=== PATIENT | female | born 1945 | race African-American/Black ===

== ENCOUNTER 2017-12-24 19:44 | Emergency (ER) | payer OTHER ==
[2017-12-24 20:45] LABS: Absolute Lymphocytes (CBC) 1.5 K/uL (0.7-4.9); Absolute Monocytes 0.7 K/uL (0.1-1.3); Basophils % 0.6 % (0-1.3); Eosinophils % 2.2 % (0-4.4); Hematocrit 34.3 % (36.0-45.0); Lymphocytes % 28.3 % (15.3-44.8); MCH 27.3 pg (27.0-35.0); MCV 80.6 fL (80-100); MPV 9.1 fL (7.6-11.3); Monocytes % 13.4 % (3.3-12.3); RBC Red Blood Cell Count 4.25 M/uL (3.86-4.86)
[2017-12-24 21:02] LABS: Potassium 3.2 mmol/L (3.5-5.1); Troponin (Emerg Dept Use Only) 0.02 ng/mL (0.0-0.045)
[2017-12-24 21:21] LABS: Urine Amorphous Sediment TRACE /HPF (NONE SEEN); Urine Bacteria 20-50 /HPF (<20); Urine Culture Reflex Order REFLEXED; Urine RBC <5 /HPF (NONE SEEN)
[2017-12-24 21:23] LABS: Urine Blood NEGATIVE (NEG); Urine Glucose NEGATIVE (NEG); Urine Protein NEGATIVE (NEG); Urine pH 5.5 (5.0-7.0)
--- NOTE | 2017-12-24 21:26 | RAD REPORT ---
EXAM DESCRIPTION: RAD - Chest Single View - 12/24/2017 8:54 pm CLINICAL HISTORY: Syncope, shortness of breath COMPARISON: December 2010 TECHNIQUE: AP portable chest image was obtained 9 hours . FINDINGS: Low lung volumes noted. No peripheral mass or consolidation. No significant failure or vol ume overload. Heart size is magnified by portable technique, shallow inspiration and large body habit us. Vasculature within normal limits for exam limitations. No measurable pleural effusion and no pneu mothorax. No acute bony abnormality seen. No acute aortic findings suspected. IMPRESSION: Shallow inspiration exam without acute cardiopulmonary finding. No significant change from comparison.
--- NOTE | 2017-12-24 22:30 | EDPHYS ---
Physician Documentation [facility] Name: Amber Olsen Age: 72 yrs Sex: Female : 1945 Arrival Date: 12/24/2017 Time: 19:50 Bed 26 Private MD: ED Physician Jason Trujillo HPI: 12/24 20:25 This 72 yrs old Black Female presents to ER via EMS with complaints of Dizziness - rn Lightheadedness. 20:25 The patient presents with dizziness, feeling faint, generalized weakness, rn lightheadedness. Onset: The symptoms/episode began/occurred just prior to arrival. Modifying factors: The symptoms are alleviated by lying down, the symptoms are aggravated by standing up, changing position. Severity of symptoms: At their worst the symptoms were moderate in the emergency department the symptoms have improved. The patient has experienced similar episodes in the past. Reports lightheaded and dizzy when trying to get up out of recliner, no syncope, reports not much water intake for the day, did not have headache/chest pain/sob/abd pain. NO recent vomiting/diarrhea. Given fluids by EMS and drank some water at home, feels better. Denies pain. . Historical: - Allergies: 20:04 No Known Allergies; kr2 - Home Meds: 20:04 pravastatin 40 mg oral tab 1 tab once daily for Hyperlipidemia [Active]; omeprazole 40 kr2 mg Oral cpDR 1 cap once daily [Active]; paroxetine HCl 10 mg oral tab 1 tab once daily for Anxiety with Depression [Active]; amlodipine 5 mg tab 1 tab once daily [Active]; tramadol 50 mg Oral tab 1 tab every 4-6 hours for Pain [Active]; losartan-hydrochlorothiazide 100-25 mg oral tab 1 tab once daily [Active]; clonidine HCl 0.1 mg Oral tab 1 tab as needed for systolic bp over 160 [Active]; - PMHx: 20:04 Hypertension; Hyperlipidemia; Depression; kr2 - PSHx: 20:04 Hysterectomy; Appendectomy; kr2 - Immunization history:: Adult Immunizations unknown. - Social history:: Smoking status: Patient/guardian denies using tobacco. - Ebola Screening: : No symptoms or risks identified at this time. - Family history:: not pertinent. - Hospitalizations: : No recent hospitalization is reported. ROS: 20:25 Constitutional: Negative for fever, chills, and weight loss, Eyes: Negative for injury, rn pain, redness, and discharge, Neck: Negative for injury, pain, and swelling, Cardiovascular: Negative for chest pain, palpitations, and edema, Respiratory: Negative for shortness of breath, cough, wheezing, and pleuritic chest pain, Abdomen/GI: Negative for abdominal pain, vomiting, diarrhea, and constipation, MS/Extremity: Negative for injury and deformity, Skin: Negative for injury, rash, and discoloration, Neuro: Negative for headache, numbness, tingling, and seizure. Exam: 20:25 Constitutional: This is a well developed, well nourished patient who is awake, alert, rn and in no acute distress. Head/Face: Normocephalic, atraumatic. Eyes: Pupils equal round and reactive to light, extra-ocular motions intact. Lids and lashes normal. Conjunctiva and sclera are non-icteric and not injected. Cornea within normal limits. Periorbital areas with no swelling, redness, or edema. ENT: dry MM Cardiovascular: Regular rate and rhythm with a normal S1 and S2. No gallops, murmurs, or rubs. Normal PMI, no JVD. No pulse deficits. Respiratory: mild tachypnea, clear bilateral breath sounds, speaking full sentences, no labored breathing Abdomen/GI: soft, non-tender Skin: Warm, dry, no evidence of cellulitis. MS/ Extremity: Pulses equal, no cyanosis. Neurovascular intact. Full, normal range of motion. Equal circumference. Neuro: Awake and alert, GCS 15, oriented to person, place, time, and situation. Cranial nerves II-XII grossly intact. Motor strength 5/5 in all extremities. Sensory grossly intact. Cerebellar exam normal. Vital Signs: 19:58 BP 124 / 44; Pulse 75; Resp 23; Temp 99.1; Pulse Ox 99% on R/A; Weight 81.65 kg; Height kr2 5 ft. 3 in. (160.02 cm); Pain 0/10; 21:00 BP 136 / 71; Pulse 72; Resp 19; Pulse Ox 99% on R/A; kr2 22:27 BP 110 / 52; Pulse 69; Resp 17; Temp 98.8; Pulse Ox 99% on R/A; kr2 19:58 Body Mass Index 31.89 (81.65 kg, 160.02 cm) kr2 MDM: 20:04 Patient medically screened. rn 22:29 Differential diagnosis: generalized weakness, hypovolemia, idiopathic dizziness, rn near-syncope. Data reviewed: vital signs, nurses notes, lab test result(s), EKG, radiologic studies, plain films, and as a result, I will discharge patient. Counseling: I had a detailed discussion with the patient and/or guardian regarding: the historical points, exam findings, and any diagnostic results supporting the discharge/admit diagnosis, lab results, radiology results, the need for outpatient follow up, to return to the emergency department if symptoms worsen or persist or if there are any questions or concerns that arise at home. Response to treatment: the patient's symptoms have markedly improved after treatment, the patient's condition has returned to base line, the patient is now symptom free, patient is well hydrated. and as a result, I will discharge patient. Special discussion: I discussed with the patient/guardian in detail that at this point there is no indication for admission to the hospital. It is understood, however, that if the symptoms persist or worsen the patient needs to return immediately for re-evaluation. 12/24 20:11 Order name: Flu; Complete Time: 21: 12/24 20:11 Order name: Urine Microscopic Only; Complete Time: : 12/24 20:11 Order name: Troponin (emerg Dept Use Only); Complete Time: 21: rn 12/24 20:11 Order name: CBC with Diff; Complete Time: 21: 12/24 20:11 Order name: Basic Metabolic Panel; Complete Time: : 12/24 20:51 Order name: Urine Dipstick--Ancillary (enter results); Complete Time: 21:28 mw2 12/24 20:11 Order name: IV Start; Complete Time: 20:12 rn 12/24 20:11 Order name: XRAY Chest (1 view); Complete Time: 21: rn 12/24 20:11 Order name: Urine Dipstick-Ancillary (obtain specimen); Complete Time: 21:03 rn 12/24 20:11 Order name: EKG; Complete Time: 20:12 rn 12/24 20:11 Order name: EKG - Nurse/Tech; Complete Time: 20:36 rn 12/24 21:22 Order name: Urine Culture EDMS Administered Medications: 20:12 Drug: NS 0.9% 500 ml Route: IV; Rate: bolus; Site: right antecubital; kr2 20:39 Follow up: Response: No adverse reaction; Marked relief of symptoms; IV Status: kr2 Completed infusion 22:35 Drug: Potassium Chloride 40 mEq Route: PO; kr2 22:35 Follow up: Response: Medication administered at discharge. kr2 Disposition: 12/24/17 22:29 Discharged to Home. Impression: Dizziness and giddiness, Dehydration, Hypokalemia. - Condition is Stable. - Discharge Instructions: Dehydration, Adult, Dizziness, Near-Syncope. - Medication Reconciliation Form, Thank You Letter, Antibiotic Education, Prescription Opioid Use form. - Follow up: Private Physician; When: As needed; Reason: Recheck today's complaints, Re-evaluation by your physician. - Problem is new. - Symptoms have improved. Signatures: Dispatcher [employer] EDMS Jason Trujillo MD MD rn Reaves, Karey, RN RN kr2 Corrections: (The following items were deleted from the chart) 22:55 22:29 12/24/2017 22:29 Discharged to Home. Impression: Dizziness and giddiness; kr2 Dehydration; Hypokalemia. Condition is Stable. Forms are Medication Reconciliation Form, Thank You Letter, Antibiotic Education, Prescription Opioid Use. Follow up: Private Physician; When: As needed; Reason: Recheck today's complaints, Re-evaluation by your physician. Problem is new. Symptoms have improved. rn
--- NOTE | 2017-12-24 22:30 | ER ---
Nurse's Notes [facility] Name: Amber Olsen Age: 72 yrs Sex: Female : 1945 Arrival Date: 12/24/2017 Time: 19:50 Bed 26 Private MD: Diagnosis: Dizziness and giddiness;Dehydration;Hypokalemia Presentation: 12/24 19:50 Presenting complaint: EMS states: patient called complaining of feeling dizzy and kr2 faint. Upon arrival she was diaphoretic, blood glucose was 136. She had several bottom teeth removed 2 weeks ago and had some difficulty eating and drinking. She was given 250mL of saline IV. Transition of care: patient was not received from another setting of care. Onset of symptoms was December 24, 2017 at 19:15. Risk Assessment: Do you want to hurt yourself or someone else? Patient reports no desire to harm self or others. Initial Sepsis Screen: Does the patient meet any 2 criteria? RR > 20 per min. Does the patient have a suspected source of infection? Yes: Other: teeth extracted 2 weeks ago. Care prior to arrival: Medication(s) given: Normal saline infusion, 250mL IV initiated. 18 GA, in the right antecubital area, Glucose check: 136. 19:50 Method Of Arrival: EMS kr2 19:50 Acuity: TERESA 3 kr2 Triage Assessment: 20:05 General: Appears in no apparent distress. comfortable, well groomed, well developed, kr2 Behavior is calm, cooperative, appropriate for age. Pain: Denies pain. EENT: Oral mucosa is moist. recent teeth extraction to right lower side. Neuro: Level of Consciousness is awake, alert, obeys commands, Oriented to person, place, time, situation. Cardiovascular: Reports fatigue, she was dizzy and light headed earlier but now is just tired Patient's skin is warm and dry. Rhythm is regular. Respiratory: Airway is patent Respiratory effort is even, unlabored, Respiratory pattern is regular, symmetrical. GI: Abdomen is flat, non-distended, Reports nausea, vomiting. : Denies burning with urination. Derm: Skin is intact, with poor turgor Skin is pink, warm \T\ dry. Musculoskeletal: Circulation, motion, and sensation intact. Historical: - Allergies: 20:04 No Known Allergies; kr2 - Home Meds: 20:04 pravastatin 40 mg oral tab 1 tab once daily for Hyperlipidemia [Active]; omeprazole 40 kr2 mg Oral cpDR 1 cap once daily [Active]; paroxetine HCl 10 mg oral tab 1 tab once daily for Anxiety with Depression [Active]; amlodipine 5 mg tab 1 tab once daily [Active]; tramadol 50 mg Oral tab 1 tab every 4-6 hours for Pain [Active]; losartan-hydrochlorothiazide 100-25 mg oral tab 1 tab once daily [Active]; clonidine HCl 0.1 mg Oral tab 1 tab as needed for systolic bp over 160 [Active]; - PMHx: 20:04 Hypertension; Hyperlipidemia; Depression; kr2 - PSHx: 20:04 Hysterectomy; Appendectomy; kr2 - Immunization history:: Adult Immunizations unknown. - Social history:: Smoking status: Patient/guardian denies using tobacco. - Ebola Screening: : No symptoms or risks identified at this time. - Family history:: not pertinent. - Hospitalizations: : No recent hospitalization is reported. Screenin:05 Abuse screen: Denies threats or abuse. Denies injuries from another. Nutritional kr2 screening: No deficits noted. Tuberculosis screening: No symptoms or risk factors identified. Fall Risk Gait- Weak (10 pts.). Assessment: 20:13 Reassessment: See triage assessment. kr2 21:00 Reassessment: Patient appears in no apparent distress at this time. Patient and/or kr2 family updated on plan of care and expected duration. Pain level reassessed. Patient is alert, oriented x 3, equal unlabored respirations, skin warm/dry/pink. Patient denies pain at this time. Patient states feeling better. 22:29 Reassessment: Patient appears in no apparent distress at this time. Patient and/or kr2 family updated on plan of care and expected duration. Pain level reassessed. Patient is alert, oriented x 3, equal unlabored respirations, skin warm/dry/pink. Patient denies pain at this time. Patient states feeling better. Vital Signs: 19:58 BP 124 / 44; Pulse 75; Resp 23; Temp 99.1; Pulse Ox 99% on R/A; Weight 81.65 kg; Height kr2 5 ft. 3 in. (160.02 cm); Pain 0/10; 21:00 BP 136 / 71; Pulse 72; Resp 19; Pulse Ox 99% on R/A; kr2 22:27 BP 110 / 52; Pulse 69; Resp 17; Temp 98.8; Pulse Ox 99% on R/A; kr2 19:58 Body Mass Index 31.89 (81.65 kg, 160.02 cm) kr2 ED Course: 19:50 Patient arrived in ED. kr2 19:50 Patient has correct armband on for positive identification. Bed in low position. Call kr2 light in reach. Side rails up X2. compliance monitor on. Pulse ox on. NIBP on. Door closed. Verbal reassurance given. Head of bed elevated. 19:55 Triage completed. kr2 19:58 Mechelle Raphael, RN is Primary Nurse. kr2 20:00 Mechelle Raphael, RN is Primary Nurse. kr2 20:00 Maintain EMS IV. Dressing intact. Good blood return noted. Site clean \T\ dry. Gauge \T\ kr 2 site: 18g RAC. 20:04 Jason Trujillo MD is Attending Physician. rn 20:08 Arm band placed on. kr2 20:20 Initial lab(s) drawn, by me, sent to lab. EKG done, by ED staff, reviewed by Jason Trujillo MD. 20:36 Basic Metabolic Panel Sent. jp3 20:36 CBC with Diff Sent. jp3 20:36 Troponin (emerg Dept Use Only) Sent. jp3 20:36 Flu Sent. jp3 20:38 Mechelle Raphael, SIOBHAN is Primary Nurse. kr2 20:52 X-ray completed. Portable x-ray completed in exam room. Patient tolerated procedure sg4 well. 20:55 XRAY Chest (1 view) In Process Unspecified. EDMS 21:03 Urine Microscopic Only Sent. kr2 22:54 No provider procedures requiring assistance completed. IV discontinued, intact, kr2 bleeding controlled, No redness/swelling at site. Pressure dressing applied. Administered Medications: 20:12 Drug: NS 0.9% 500 ml Route: IV; Rate: bolus; Site: right antecubital; kr2 20:39 Follow up: Response: No adverse reaction; Marked relief of symptoms; IV Status: kr2 Completed infusion 22:35 Drug: Potassium Chloride 40 mEq Route: PO; kr2 22:35 Follow up: Response: Medication administered at discharge. kr2 Outcome: 22:29 Discharge ordered by . rn 22:55 Discharged to home via wheelchair, with family. kr2 22:55 Condition: improved 22:55 Discharge instructions given to patient, Instructed on discharge instructions, follow up and referral plans. Demonstrated understanding of instructions, follow-up care. 22:55 Patient left the ED. kr2 Signatures: Dispatcher [employer] EDMS Jason Trujillo MD MD rn Reaves, Karey, RN RN kr2 Herber Patino jp3 Svetlana Madrid 4 Corrections: (The following items were deleted from the chart) 23:00 22:27 BP 110 / 52; Pulse 69bpm; Resp 17bpm; Pulse Ox 99% RA; kr2 kr2 23:01 19:50 Door closed. Warm blanket given. Head of bed elevated. kr2 kr2
[2017-12-24] MEDS ORDERED: POTASSIUM CL SA 10 MEQ TAB PO ONE (22:39)
[2017-12-24 23:00] VITALS: TEMP 99.1; O2SAT 99
[2017-12-24 23:02] VITALS: BP 110/52
--- NOTE | 2017-12-25 09:03 | EKG ---
Test Date: 2017-12-24 Test Time: 20:28:07 Pressroom Supervisor: SOPHIE MEASUREMENT RESULTS: Intervals: Rate: 72 IA: 170 QRSD: 96 QT: 402 QTc: 440 [place]: P: 8 IA: 170 QRS: 80 T: -22 INTERPRETIVE STATEMENTS: Normal sinus rhythm Nonspecific T wave abnormality Abnormal ECG Compared to ECG 12/28/2010 08:58:34 T-wave abnormality now present Left ventricular hypertrophy no longer present Electronically Signed On 12-25-17 09:02:42 CDT by Carl Robles
== END 2017-12-24 22:55 | disposition home or self-care (01) ==
LOC: ER 19:44
DX: E86.0 Dehydration (principal); E87.6 Hypokalemia; E78.5 Hyperlipidemia, unspecified; I10 Essential (primary) hypertension; F34.1 Dysthymic disorder
CPT/HCPCS: 36415; 71045; 80048; 81003; 81015; 84484; 85025; 87086; 87088; 87804; 93005; 99284

== ENCOUNTER 2023-11-15 14:52 | Emergency (ER) | payer OTHER ==
[2023-11-15 16:19] LABS: Specific Gravity > 1.030 (1.005-1.030); Urine Bacteria <20 /HPF (<20); Urine Bilirubin NEGATIVE (Negative); Urine Blood Negative (Negative); Urine Clarity Extremely Turbid (Clear); Urine Color Yellow (Yellow); Urine Crystals Unidentified Few /HPF (None Seen); Urine Culture Reflex Order NOT NEEDED; Urine Glucose NEGATIVE (Negative); Urine Ketones TRACE (Negative); Urine Microscopic Reflex YN ORDER UMIC; Urine Mucus 2+ /HPF (None Seen); Urine Nitrite NEGATIVE (Negative); Urine Protein 1+ (Negative); Urine Urobilinogen 1+ (Normal); Urine Yeast (Budding) Trace /HPF (None Seen); Urine pH 5.5 (5.0-7.0)
--- NOTE | 2023-11-15 16:33 | RAD REPORT ---
EXAM DESCRIPTION: RAD - Lumbar Spine 3 Views - 11/15/2023 3:45 pm CLINICAL HISTORY: Back pain FINDINGS: No fracture or dislocation is seen. Mild spondylosis involves the lumbar spine The bones are osteoporotic
--- NOTE | 2023-11-15 16:39 | EDPHYS ---
Physician Documentation [facility] Name: Amber Olsen Age: 77 yrs Sex: Female : 1945 Arrival Date: 11/15/2023 Time: 14:52 Bed IW1 Private MD: ED Physician Kayden Owens HPI: 11/14 15:26 This 77 yrs old Black Female presents to ER via Ambulatory with complaints of Flank kb Pain. 15:26 Pt is a 77 year old female who presents for low back pain that starts in center of back kb and radiates to each side, worse on the left. States the pain started about a month ago. Denies injury, fall, trauma. States pain is worse at night and with standing if she has been sitting for a prolonged period of time. States the pain is keeping her up at night so she decided to come get it checked out. Denies urinary symptoms, fever, numbness, tingling. Historical: - PMHx: 15:20 Hyperlipidemia; Hypertension; diabetes mellitus; Depression; iw - Immunization history:: Adult Immunizations up to date. - Infectious Disease History:: Denies. - Social history:: Smoking status: Patient denies any tobacco usage or history of. ROS: 15:28 Constitutional: As per HPI kb Exam: 15:28 Constitutional: This is a well developed, well nourished patient who is awake, alert, kb and in no acute distress. Head/Face: Normocephalic, atraumatic. ENT: Moist Mucous membranes Cardiovascular: Regular rate Respiratory: Respirations even and unlabored. No increased work of breathing. Talking in full sentences Abdomen/GI: Soft, non-tender. No distention Skin: Warm, dry with normal turgor. Normal color. MS/ Extremity: Pulses equal, no cyanosis. Neurovascular intact. Full, normal range of motion. Neuro: Awake and alert, GCS 15, oriented to person, place, time, and situation. Moves all extremities. Normal gait. 15:28 Back: pain, that is mild, of the lumbar area, Vital Signs: 15:20 BP 137 / 64; Pulse 81; Resp 16; Temp 97.3; Pulse Ox 98% on R/A; Pain 7/10; iw 15:20 Pain Scale: Adult iw MDM: 15:00 Patient medically screened. kb 15:28 Differential diagnosis: arthritis, strain, contusion, Herniated disc UTI. Data kb reviewed: vital signs, nurses notes. 16:37 Test considered but Not performed: MRI: MRI lumbar spine considered, but pain has been kb ongoing with no neuro deficits or acute injury. Counseling: I had a detailed discussion with the patient and/or guardian regarding the historical points, exam findings, and any diagnostic results supporting the discharge/admit diagnosis, lab results, radiology results, the need for outpatient follow up, a family practitioner, a orthopedic surgeon, to return to the emergency department if symptoms worsen or persist or if there are any questions or concerns that arise at home. 11/14 15:22 Order name: Urinalysis w/ reflexes; Complete Time: 16:20 kb 11/14 15:22 Order name: Lumbar Spine (3 Views) XRAY; Complete Time: 16:37 kb Administered Medications: No medications were administered Disposition Summary: 11/15/23 16:38 Discharge Ordered Notes: Location: Home kb Condition: Stable kb Diagnosis - Low back pain kb Followup: kb - With: Emergency Department - When: As needed - Reason: Worsening of condition Followup: kb - With: Private Physician - When: 2 - 3 days - Reason: Recheck today's complaints, Continuance of care, Re-evaluation by your physician Discharge Instructions: - Discharge Summary Sheet kb - Acute Back Pain, Adult kb Forms: - Medication Reconciliation Form kb - Antibiotic Education kb - Prescription Opioid Use kb - Patient Portal Instructions kb - Leadership Thank You Letter kb Prescriptions: - orphenadrine citrate 100 mg Oral tablet, extended release - take 1 tablet ORAL route 2 times per day As needed; 10 tablet; Refills: 0, kb Product Selection Permitted Addendum: 11/18/2023 15:50 Co-signature as Attending Physician, Kayden Owens MD I agree with the assessment and c arzate plan of care. Signatures: Dispatcher [employer] Tonia Farfan, CASTING ASSOCIATE-C CASTING ASSOCIATE-Kayden Dougherty MD MD cha Williams, Irene, SIOBHAN MCCANN iw [place] RN RN ll1 Corrections: (The following items were deleted from the chart) 11/14 15:22 15:22 Urinalysis+U.LAB.BRZ ordered. EDMS EDMS 15:22 15:22 Lumbar Spine 3 Views+RAD.RAD.BRZ ordered. EDMS EDMS 16:38 16:37 Test considered but Not performed: MRI: MRI lumbar spine considered. kb kb
--- NOTE | 2023-11-15 16:39 | ER ---
Nurse's Notes [facility] Name: Amber Olsen Age: 77 yrs Sex: Female : 1945 Arrival Date: 11/15/2023 Time: 14:52 Bed IW1 Private MD: Diagnosis: Low back pain Presentation: 11/14 15:19 Chief complaint: Patient states: bad lower back pain and left hip and side pain , worse iw at night , has had it for some time. Coronavirus screen: At this time, the client does not indicate any symptoms associated with coronavirus-19. Ebola Screen: No symptoms or risks identified at this time. Initial Sepsis Screen: Does the patient meet any 2 criteria? No. Patient's initial sepsis screen is negative. Does the patient have a suspected source of infection? No. Patient's initial sepsis screen is negative. Risk Assessment: Do you want to hurt yourself or someone else? Patient reports no desire to harm self or others. Onset of symptoms was October 2023. 15:19 Method Of Arrival: Ambulatory iw 15:19 Acuity: TERESA 3 iw Historical: - PMHx: 15:20 Hyperlipidemia; Hypertension; diabetes mellitus; Depression; iw - Immunization history:: Adult Immunizations up to date. - Infectious Disease History:: Denies. - Social history:: Smoking status: Patient denies any tobacco usage or history of. Screenin:25 [facility] ED Fall Risk Assessment (Adult) History of falling in the last 3 months, ll1 including since admission No falls in past 3 months (0 pts) Confusion or Disorientation No (0 pts) Intoxicated or Sedated No (0 pts) Impaired Gait Yes (1 pt) Mobility Assist Device Used Yes (1 pt) Altered Elimination No (0 pt) Score/Fall Risk Level 0 - 2 = Low Risk Maintained a safe environment, Hourly rounding (assess needs \T\ fall precautionary measures) done. Abuse screen: Denies threats or abuse. Nutritional screening: No deficits noted. Tuberculosis screening: No symptoms or risk factors identified. Assessment: 17:24 General: Appears in no apparent distress. Behavior is calm, cooperative, appropriate ll1 for age. Pain: Complains of pain in lumbar area Quality of pain is described as aching. Musculoskeletal: Circulation, motion, and sensation intact. Capillary refill < 3 seconds, in bilateral toes. Reports pain in lumbar area. Vital Signs: 15:20 BP 137 / 64; Pulse 81; Resp 16; Temp 97.3; Pulse Ox 98% on R/A; Pain 7/10; iw 15:20 Pain Scale: Adult iw ED Course: 14:57 Patient arrived in ED. ra3 15:00 Tonia Joseph [facility]-C [facility]. kb 15:00 Kayden Owens MD is Attending Physician. kb 15:20 Triage completed. iw 15:20 Arm band placed on. iw 15:47 Lumbar Spine (3 Views) XRAY In Process Unspecified. EDMS 17:25 Patient has correct armband on for positive identification. Provided Education on: ll1 return to ED for worsening symptoms. 17:25 No provider procedures requiring assistance completed. Patient did not have IV access ll1 during this emergency room visit. Administered Medications: No medications were administered Medication: 17:26 VIS not applicable for this client. ll1 Outcome: 16:38 Discharge ordered by . kb 17:25 Discharged to home ambulatory, ll1 17:25 Condition: stable 17:25 Discharge instructions given to patient, Instructed on discharge instructions, follow up and referral plans. medication usage, Demonstrated understanding of instructions, follow-up care, medications, Prescriptions given X 1, 17:26 Patient left the ED. ll1 Signatures: Dispatcher [employer] EDPA Tonia Joseph FNP-C FNP-Ckb Williams, Irene RN SIOBHAN [place] RN RN ll1 Gricel Toscano ra3 Corrections: (The following items were deleted from the chart) 15:21 15:20 Pulse 81bpm; Resp 16bpm; Pulse Ox 98% RA; Temp 97.3F; iw iw 15:21 15:20 BP 137 / 64; Pulse 81bpm; Resp 16bpm; Pulse Ox 98% RA; Temp 97.3F; iw iw
[2023-11-15 17:56] VITALS: BP 137/64; TEMP 97.3; O2SAT 98
== END 2023-11-15 17:26 | disposition home or self-care (01) ==
LOC: ER 14:52
DX: M54.50 Low back pain, unspecified (principal); E11.9 Type 2 diabetes mellitus without complications; I10 Essential (primary) hypertension
CPT/HCPCS: 72100; 81001; 99283

== ENCOUNTER 2024-01-11 16:06 | Emergency (ER) | payer OTHER ==
--- NOTE | 2024-01-11 19:02 | RAD REPORT ---
EXAMINATION: US LEFT LOWER EXTREMITY VENOUS DOPPLER CLINICAL INDICATION: [facility] MAIN LLE PAIN Bed: Y TECHNIQUE: Complete bilateral duplex sonography of the LEFT lower extremity veins was performed. The examination included compression for vein patency, color Doppler imaging and flow augmentation in response to distal compression of the distal external iliac, common femoral, femoral, popliteal, tibi al, and great and small saphenous veins. COMPARISON: No prior exam. FINDINGS: Duplex sonography testing of the veins of the LEFT lower extremity was performed. Color flow imaging shows all veins to be compressible with [id number] color filling. Pulsatile and phasic flow is present within all lower extremity deep and superficial veins examined. IMPRESSION: No evidence of deep venous thrombosis.
--- NOTE | 2024-01-11 19:03 | RAD REPORT ---
EXAMINATION: XR Tib Fib Left CLINICAL INDICATION: Female, 78 years old. PAIN TECHNIQUE: 2 view radiograph of the left tibia and fibula were obtained. COMPARISON: No prior exam. FINDINGS: No evidence of fracture or dislocation. Normal alignment. No evidence of arthropathy or oth er focal bone lesion. Soft tissues are unremarkable. IMPRESSION: No acute or significant abnormalities.
--- NOTE | 2024-01-11 19:03 | RAD REPORT ---
EXAMINATION: XR Elbow Left 3 View CLINICAL INDICATION: Female, 78 years old. fall;Pain TECHNIQUE: 3 view radiographs of the left elbow were obtained. COMPARISON: No prior exam. FINDINGS: No evidence of fracture or dislocation. Normal alignment. No joint effusion. No evidence of arthropathy. No suspicious focal bone lesion. Soft tissues are unremarkable. IMPRESSION: No acute or significant abnormalities.
--- NOTE | 2024-01-11 19:11 | ER ---
Nurse's Notes [facility] Name: Amber Olsen Age: 78 yrs Sex: Female : 1945 Arrival Date: 01/11/2024 Time: 16:06 Bed 11 Private MD: Diagnosis: Paresthesia of skin Presentation: 01/10 16:31 Chief complaint: Patient states: left hip and lower back pain x1 month. My leg is tm6 starting to feel numb. Left elbow hurts as well. I fell about 2 weeks ago. Coronavirus screen: Client denies travel out of the [place] in the last 14 days. Ebola Screen: Patient negative for fever greater than or equal to 101.5 degrees Fahrenheit, and additional compatible Ebola Virus Disease symptoms Patient denies exposure to infectious person. Patient denies travel to an Ebola-affected area in the 21 days before illness onset. No symptoms or risks identified at this time. Initial Sepsis Screen: Does the patient meet any 2 criteria? No. Patient's initial sepsis screen is negative. Does the patient have a suspected source of infection? No. Patient's initial sepsis screen is negative. Risk Assessment: Do you want to hurt yourself or someone else? Patient reports no desire to harm self or others. Onset of symptoms was December 11, 2023. 16:31 Method Of Arrival: Wheelchair tm6 16:31 Acuity: TERESA 4 tm6 Triage Assessment: 16:32 General: Appears in no apparent distress. Behavior is calm, cooperative. Pain: tm6 Complains of pain in left low back, left hip and left elbow, left leg Pain currently is 10 out of 10 on a pain scale. Pain began about a month ago. EENT: No signs and/or symptoms were reported regarding the EENT system. Neuro: Level of Consciousness is awake, alert, obeys commands, Oriented to person, place, time, situation. Cardiovascular: Patient's skin is warm and dry. Respiratory: Airway is patent Respiratory effort is even, unlabored, Respiratory pattern is regular, symmetrical. GI: No signs and/or symptoms were reported involving the gastrointestinal system. Abdomen is round non-distended. : No signs and/or symptoms were reported regarding the genitourinary system. Derm: No signs and/or symptoms reported regarding the dermatologic system. Musculoskeletal: Reports pain in left low back, left hip, left elbow and left leg since one month. Pain is 10 out of 10 on a pain scale. Historical: - Allergies: 16:32 No Known Allergies; tm6 - PMHx: 16:32 Depression; Hyperlipidemia; Hypertension; pre-diabetic (Hypertension); Anemia; tm6 - PSHx: 16:32 Appendectomy; oophorectomy; tm6 - Immunization history:: Client reports receiving the 2nd dose of the Covid vaccine. - Infectious Disease History:: Denies. - Social history:: Smoking status: Patient denies any tobacco usage or history of. Patient/guardian denies using alcohol. - Family history:: not pertinent. - Hospitalizations: : No recent hospitalization is reported. Screenin:[facility] ED Fall Risk Assessment (Adult) History of falling in the last 3 months, me1 including since admission No falls in past 3 months (0 pts) Confusion or Disorientation No (0 pts) Intoxicated or Sedated No (0 pts) Impaired Gait Yes (1 pt) Mobility Assist Device Used Yes (1 pt) Altered Elimination No (0 pt) Score/Fall Risk Level 0 - 2 = Low Risk Maintained a safe environment, Provided non-skid footwear, Hourly rounding (assess needs \T\ fall precautionary measures) done. Abuse screen: Denies threats or abuse. Nutritional screening: No deficits noted. Tuberculosis screening: No symptoms or risk factors identified. Assessment: 17:56 General: Appears uncomfortable, well groomed, well developed, well nourished, Behavior me1 is calm, cooperative, appropriate for age, Reports left hip and lower back pain x1 month. My leg is starting to feel numb. Left elbow hurts as well. I fell about 2 weeks ago. Pain: Complains of pain in left leg and left arm and pelvis and back and left hip and left elbow and left low back Pain does not radiate. Pain currently is 5 out of 10 on a pain scale. Quality of pain is described as aching, Pain began gradually, Is continuous. Neuro: Level of Consciousness is awake, alert, obeys commands, Oriented to person, place, time, situation, Appropriate for age. Cardiovascular: Patient's skin is warm and dry. Respiratory: Airway is patent Respiratory effort is even, unlabored, Respiratory pattern is regular, symmetrical. GI: No signs and/or symptoms were reported involving the gastrointestinal system. : No signs and/or symptoms were reported regarding the genitourinary system. EENT: No signs and/or symptoms were reported regarding the EENT system. Derm: Skin is intact, is healthy with good turgor, Skin is pink, warm \T\ dry. Musculoskeletal: Reports pain in left leg and left arm and pelvis and back and left hip and left elbow and left low back. Injury Description: fell about 2 weeks ago. Vital Signs: 16:30 Resp 18; Temp 98.1(TE); Weight 83.01 kg; Height 5 ft. 0 in. ; Pain 5/10; tm6 16:31 BP 150 / 71; Pulse 97; Pulse Ox 96% on R/A; MAP 94 mmHg; tm6 19:21 BP 137 / 68; Pulse 86; Resp 17; Temp 98.4; Pulse Ox 97% ; me1 16:30 Body Mass Index 35.74 (83.01 kg, 152.4 cm) tm6 16:30 Pain Scale: Adult tm6 ED Course: 16:09 Patient arrived in ED. im 16:13 Jason Trujillo MD is Attending Physician. rn 16:32 Triage completed. tm6 16:32 Arm band placed on left wrist. tm6 16:56 XRAY Elbow LEFT 3 view In Process Unspecified. EDMS 16:56 XRAY Tib Fib LEFT In Process Unspecified. EDMS 17:29 Extremity Venous Uni Ltd US In Process Unspecified. EDMS 17:53 Roma Clark, SIOBHAN is Primary Nurse. me1 17:56 Patient has correct armband on for positive identification. Bed in low position. Call me1 light in reach. Side rails up X 1. Provided Education on: POC. Verbalized understanding.. 17:56 No provider procedures requiring assistance completed. Patient did not have IV access me1 during this emergency room visit. Administered Medications: No medications were administered Medication: 17:56 VIS not applicable for this client. me1 Outcome: 19:11 Discharge ordered by . rn 19:29 Discharged to home via wheelchair, me1 19:29 Condition: stable 19:29 Discharge instructions given to patient, Instructed on discharge instructions, follow up and referral plans. Demonstrated understanding of instructions, follow-up care, 19:29 Patient left the ED. me1 Signatures: Dispatcher [employer] EDJason Holder MD MD rn Mendoza, Itzel im Eddleman, Michelle, RN RN me1 Varun Quintana RN RN tm6 Corrections: (The following items were deleted from the chart) 16:33 16:32 PMHx: diabetes mellitus; tm6 tm6 17:56 16:31 Chief complaint: Patient states: left hip and lower back pain x1 month. My leg is me1 starting to feel numb. Left elbow hurts as well. I fell about 2 weeks ago. tm6
--- NOTE | 2024-01-11 19:11 | EDPHYS ---
Physician Documentation [facility] Name: Ambre Olsen Age: 78 yrs Sex: Female : 1945 Arrival Date: 01/11/2024 Time: 16:06 Bed 11 Private MD: ED Physician Jason Trujillo HPI: 01/10 16:35 This 78 yrs old Black Female presents to ER via Wheelchair with complaints of Hip Pain, rn Numbness - of left leg, Arm Pain - Left. 16:36 The patient presents with Tingling and pain. Onset: The symptoms/episode began/occurred rn at an unknown time. Modifying factors: The symptoms are alleviated by nothing. the symptoms are aggravated by nothing. Severity of symptoms: At their worst the symptoms were mild, in the emergency department the symptoms are unchanged. The patient has experienced similar episodes in the past. The patient has not recently seen a physician. Patient reports left leg tingling and pain, no injury, no swelling, no history of DVT or PE. Has left lower back pain and hip pain and has had this before. Also reports a week or 2 fell and hit left elbow and reports pain at elbow.. Historical: - Allergies: 16:32 No Known Allergies; tm6 - PMHx: 16:32 Depression; Hyperlipidemia; Hypertension; pre-diabetic (Hypertension); Anemia; tm6 - PSHx: 16:32 Appendectomy; oophorectomy; tm6 - Immunization history:: Client reports receiving the 2nd dose of the Covid vaccine. - Infectious Disease History:: Denies. - Social history:: Smoking status: Patient denies any tobacco usage or history of. Patient/guardian denies using alcohol. - Family history:: not pertinent. - Hospitalizations: : No recent hospitalization is reported. ROS: 16:36 Constitutional: Negative for fever, chills, and weight loss, Cardiovascular: Negative rn for chest pain, palpitations, and edema, Respiratory: Negative for shortness of breath, cough, wheezing, and pleuritic chest pain, Abdomen/GI: Negative for abdominal pain, nausea, vomiting, diarrhea, and constipation, Back: Negative for injury MS/Extremity: Positive for left lower leg pain and tingling Skin: Negative for injury, rash, and discoloration, Neuro: Negative for headache, weakness, and seizure, Exam: 16:36 Constitutional: This is a well developed, well nourished patient who is awake, alert, rn and in no acute distress. Ambulatory to triage without assistance or difficulty Cardiovascular: Regular rate and rhythm. No pulse deficits. MS/ Extremity: Pulses equal, no cyanosis. Neurovascular intact. Full, normal range of motion. Equal circumference. Strong dorsalis pedis pulse. Neuro: Awake and alert, GCS 15, oriented to person, place, time, and situation. Motor strength 5/5 in all extremities. Sensory grossly intact. Vital Signs: 16:30 Resp 18; Temp 98.1(TE); Weight 83.01 kg; Height 5 ft. 0 in. ; Pain 5/10; tm6 16:31 BP 150 / 71; Pulse 97; Pulse Ox 96% on R/A; MAP 94 mmHg; tm6 19:21 BP 137 / 68; Pulse 86; Resp 17; Temp 98.4; Pulse Ox 97% ; me1 16:30 Body Mass Index 35.74 (83.01 kg, 152.4 cm) tm6 16:30 Pain Scale: Adult tm6 MDM: 16:13 Medical Screening Exam initiated rn 19:10 Differential diagnosis: DVT, radiculopathy, arthritis, strain. Data reviewed: vital rn signs, nurses notes, radiologic studies, doppler, plain films, and as a result, I will discharge patient. Counseling: I had a detailed discussion with the patient and/or guardian regarding the historical points, exam findings, and any diagnostic results supporting the discharge/admit diagnosis, radiology results, the need for outpatient follow up, to return to the emergency department if symptoms worsen or persist or if there are any questions or concerns that arise at home. Special discussion: I discussed with the patient/guardian in detail that at this point there is no indication for admission to the hospital. It is understood, however, that if the symptoms persist or worsen the patient needs to return immediately for re-evaluation. 01/10 16:27 Order name: Extremity Venous Uni Ltd ; Complete Time: : rn 01/11 16:27 Order name: XRAY Elbow LEFT 3 view; Complete Time: : rn 01/10 16:27 Order name: XRAY Tib Fib LEFT; Complete Time: : rn Administered Medications: No medications were administered Disposition Summary: 01/11/24 19:11 Discharge Ordered Notes: Location: Home rn Problem: new rn Symptoms: have improved rn Condition: Stable rn Diagnosis - Paresthesia of skin rn Followup: rn - With: Private Physician - When: As needed - Reason: Recheck today's complaints, Re-evaluation by your physician Discharge Instructions: - Discharge Summary Sheet rn - Paresthesia rn Forms: - Medication Reconciliation Form rn - Antibiotic lpn rn hospice - Prescription Opioid Use rn - Patient Portal Instructions rn - Leadership Thank You Letter rn Signatures: Dispatcher [employer] EDMS Jason Trujillo MD MD rn Masterson, Tawney, RN RN tm6 Corrections: (The following items were deleted from the chart) 16:27 16:27 Elbow Left 3 View+RAD.RAD.BRZ ordered. EDMS EDMS 16:27 16:27 Tib Fib Left+RAD.RAD.BRZ ordered. EDMS EDMS 16:33 16:32 PMHx: diabetes mellitus; tm6 tm6
[2024-01-11 19:43] VITALS: BP 137/68; TEMP 98.4; O2SAT 97
== END 2024-01-11 19:29 | disposition home or self-care (01) ==
LOC: ER 16:06
DX: R20.2 Paresthesia of skin (principal); M25.552 Pain in left hip; M54.50 Low back pain, unspecified
CPT/HCPCS: 93971; 99283